=== PATIENT | male | born 2005 | race Caucasian/White ===

== ENCOUNTER 2024-06-27 16:56 | Outpatient (CLI) | payer OTHER, SELFPAY ==
[2024-06-27 23:19] LABS: GC DNA Amplified* NOT DETECTED (No Detected)
[2024-06-28 01:04] LABS: Chlamydia DNA Amplified* DETECTED (No Detected)
== END 2024-06-27 16:57 | disposition home or self-care (01) ==
LOC: NFLDUCREF 16:56
PROVIDERS: Visit Provider Physician Assistant
DX: R30.0 Dysuria (principal); Z11.3 Encounter for screening for infections with a predominantly sexual mode of transmission
CPT/HCPCS: 87086; 87491; 87591

== ENCOUNTER 2024-08-01 14:57 | Outpatient (CLI) | payer OTHER, SELFPAY | END 2024-08-01 14:58 | disposition home or self-care (01) | LOC: NFLDREF 15:07 | PROVIDERS: Visit Provider Family Medicine | DX: N45.1 Epididymitis (principal); Z11.3 Encounter for screening for infections with a predominantly sexual mode of transmission | CPT/HCPCS: 87491; 87591 ==